=== PATIENT | male | born 1975 | race Caucasian/White ===

== ENCOUNTER 2018-12-20 08:30 | Emergency (ER) | payer OTHER ==
[2018-12-20] MEDS ORDERED: diphenhydrAMINE HCL 50 MG CAPSULE PO ONE (08:34)
[2018-12-20] MEDS ORDERED: FAMOTIDINE 20 MG TABLET PO ONE (08:34)
[2018-12-20] MEDS ORDERED: diphenhydrAMINE HCL 25 MG CAPSULE (FP) PO ONE (08:40)
[2018-12-20] MEDS ORDERED: FAMOTIDINE 20 MG TABLET ONE (08:40)
[2018-12-20 08:42] VITALS: BMI 32.1
[2018-12-20] MEDS ORDERED: predniSONE 20 MG TABLET (UD) PO ONE (08:51)
--- NOTE | 2018-12-20 08:51 | PDOC ---
History of Present Illness - General Chief Complaint: Allergic Reaction Stated Complaint: BEE STING History Source: Patient Exam Limitations: No Limitations - History of Present Illness Initial Comments: 12/20/18 08:46 43 yo M h/o prior allergy to bee sting here with c/o bee sting 10 minutes ago. pt states stung on his left forearm while at work. he took his epi pen, but was concerned because it one year ago. did not take any thing else. no lip or tongue swelling. c/o small area of rash around the bite . no wheezing. no sob. no n/v. happned prior and pt developed facial swelling . Past History - Past Medical History Allergies/Adverse Reactions: Allergies Allergy/AdvReac Type Severity Reaction Status Date / Time bee venom protein (honey bee) Allergy Verified 12/20/18 08:31 Home Medications: Ambulatory Orders EPINEPHrine [Epinephrine] 0.3 mg IM 1XPACU PRN #2 auto.injct 12/20/18 Prednisone [Deltasone] 20 mg PO BID #6 tablet MDD 2 12/20/18 COPD: No Other medical history: denies - Immunization History Immunization Up to Date: (2012) - Suicide/Smoking/Psychosocial Hx Smoking Status: Yes Smoking History: Never smoked Have you smoked in the past 12 months: No Number of Cigarettes Smoked Daily: 0 Information on smoking cessation initiated: No Hx Alcohol Use: ("rare") Drug/Substance Use Hx: No Substance Use Type: None Review of Systems - Review of Systems Constitutional: No: Chills, Diaphoresis, Fever HEENTM: No: Eye Pain Respiratory: No: Cough, Orthopnea, Shortness of Breath ABD/GI: No: Abdominal Distended, Nausea, Poor Appetite Musculoskeletal: No: Back Pain, Gout, Joint Pain Integumentary: Yes: Rash. No: Erythema, Flushing, Lesions All Other Systems: Reviewed and Negative *Physical Exam - Vital Signs Last Vital Signs Temp Pulse Resp BP Pulse Ox 98.3 F 103 H 20 147/90 99 12/20/18 08:30 12/20/18 08:30 12/20/18 08:30 12/20/18 08:30 12/20/18 08:30 - Physical Exam Comments: 12/20/18 08:49 awake alert lungs clear bilaterally heart rrr no mrg abd soft nt nd ext wwp. left upper ext with small area of rash about forearm 1 in x 2 in. 2 + radial / ulnar pulses. Medical Decision Making - Medical Decision Making 12/20/18 08:50 43 yo male h/o prior bee sting allergy, here s/p bee sting. already got epi at home. will treat with benadryl, pepcid and steroids. no current sxs of anaphylaxis. will observe for reaction. 12/20/18 10:38 pt with improvement. no wheezing. no lip or tongue swelling. rash has not spread. will dc with refill for epi, steroids x 3 days and benadryl. *DC/Admit/Observation/Transfer Diagnosis at time of Disposition: Bee sting allergy - Discharge Dispostion Disposition: HOME Condition at time of disposition: Improved - Prescriptions Prescriptions: EPINEPHrine [Epinephrine] 0.3 mg IM 1XPACU PRN #2 auto.injct PRN Reason: Allergies Prednisone [Deltasone] 20 mg PO BID #6 tablet MDD 2 - Referrals - Patient Instructions Printed Discharge Instructions: DI for General Allergic Reactions Additional Instructions: you can use prednisone 20 mg twice daily x 3 days starting tomorrow. you can take benadryl 25 mg every 6 hrs as needed for itching and allergy symptoms. you can use epi pen for any repeat serious allergic reactions. - Post Discharge Activity
[2018-12-20] MEDS ORDERED: predniSONE 20 MG TABLET (UD) ONE (08:53)
[2018-12-20 11:13] VITALS: BP 138/65; PULSE 79; TEMP 97.8
== END 2018-12-20 11:13 | disposition home or self-care (01) ==
LOC: FER 08:30
DX: S51.852A Open bite of left forearm, initial encounter (principal); W57.XXXA Bitten or stung by nonvenomous insect and other nonvenomous arthropods, initial encounter; Y93.9 Activity, unspecified; Y99.0 Civilian activity done for income or pay
CPT/HCPCS: 99283-25

== ENCOUNTER 2019-01-24 09:56 | Emergency (ER) | payer OTHER ==
--- NOTE | 2019-01-24 09:59 | PDOC ---
History of Present Illness - General Chief Complaint: Bite Stated Complaint: BEE STING Time Seen by Provider: 01/24/19 09:59 History Source: Patient Exam Limitations: No Limitations - History of Present Illness Initial Comments: 01/24/19 10:09 43 YOM with h/o bee sting allergies presenting with bee stings to his head and forehead [employer]. he self injected his epi pen [employer] at approx 955AM. several bees stung his left side of head and right upper forehead now with faint rash, no stinger left in place, while he was riding a tractor. pt denies airway involvement, sensation of throat closing, respiratory distress , CP, AP, headache, dizziness 01/24/19 11:59 Past History - Past Medical History Allergies/Adverse Reactions: Allergies Allergy/AdvReac Type Severity Reaction Status Date / Time bee venom protein (honey bee) Allergy Verified 01/24/19 09:57 Home Medications: Ambulatory Orders Diphenhydramine [Benadryl -] 50 mg PO QID PRN #30 capsule 01/24/19 EPINEPHrine (EPI-PEN 0.3MG) [Epipen 0.3MG -] 0.3 mg IM ASDIR PRN #2 pens COPD: No - Immunization History Immunization Up to Date: (2012) - Suicide/Smoking/Psychosocial Hx Smoking Status: Yes Smoking History: Never smoked Have you smoked in the past 12 months: No Number of Cigarettes Smoked Daily: 0 Hx Alcohol Use: ("rare") Drug/Substance Use Hx: No Substance Use Type: None Review of Systems - Review of Systems Able to Perform ROS?: Yes Comments:: 01/24/19 10:11 Review of systems Constitutional: no fevers or chills. HEENT: no headache or dizziness. No congestion. No visual/hearing disturbances. no sore throat, no neck pain. CVS: no cp or syncope. Resp: no sob. No cough. no respiratory distress. Gastrointestinal: no abdominal pain, nausea or vomiting. MUSCULOSKELETAL: No joint pain and swelling. No neck or back pain. SKIN: no redness or skin changes, no discharge, no rash. No wounds. +hive/bee sting to forehead/scalp Hematologic: no easy bruising/bleeding. NEUROLOGIC: No headache, dizziness, LOC or altered mental status. No weakness, numbness or tingling. Allergic/Immunologic: +bee sting allergy All other systems reviewed and negative, or as documented in HPI. *Physical Exam - Physical Exam Comments: 01/24/19 10:12 Physical exam: General: Well appearing, awake and alert, NAD. HEENT: NCAT, PERRL, EOMI, clear conjunctiva, anicteric, moist mucus membranes, clear oropharynx, no oral lesions.. right upper forehead and left lateral scalp with small raised area of erythema, site of bee stings; no stinger/FB in place clear phonation, uvula midline Neck: neck supple, FROM Resp: CTAB, normal and even respirations, no respiratory distress CVS: RRR, no murmurs, 2+ peripheral pulses throughout, no peripheral edema Abdomen: soft, NTND, no peritoneal signs. Back: nontender, normal inspection and ROM MSK: no edema, VALENTE x4, ROM intact. No clubbing or cyanosis. normal bulk and tone. Neuro: alert, no focal neuro deficits. Psych: calm and cooperative Skin: warm and well perfused, cap refill <2 sec, normal color, +rash to forehead /scalp as above. 01/24/19 10:13 Medical Decision Making - Medical Decision Making 01/24/19 10:08 Vital Signs Temp Pulse Resp BP Pulse Ox 98.3 F 96 H 18 142/103 H 99 01/24/19 09:57 01/24/19 09:57 01/24/19 09:57 01/24/19 09:57 01/24/19 09:57 hpi as documented VS with HTN, this is likely 2/2 epi pen inj [employer] at 955AM airway intact, clear lungs, mentating, no symptoms except for bee sting sites. ED course: - monitored in the ED x 2 hours post epi, no recurrence of sx. given benadryl, with improvement 01/24/19 11:59 no recurrence on further eval. pt comfortable, NAD and nontoxic appearing repeat VS normalized, no hypotension, normal respirations, no tachy medication use and instructions given. avoid triggers and precipitating allergens. Pt to be discharged in stable condition. Patient made aware of clinical impression, treatment recommendations and disposition plan, return precautions discussed (including but not limited to new or persistent/worsening symptoms, pain, fevers, or signs of infection, chest pain, respiratory distress, inability to tolerate oral intake, dehydration, syncope, or neurologic changes) . Follow up with PMD as recommended, follow up information provided, take medications as instructed for duration of time. continue with supportive care, avoid triggers and precipitants. All questions answered to patient's satisfaction and expressed understanding and comfort with this. At the time of discharge, the patient is alert, clinically improved, tolerating po and verbalizes understanding of instructions, satisfied with the care received and felt comfortable with the plan. Patient does not suffer from an acute life- threatening medical condition at this time and is safe for outpatient follow- up. 01/24/19 12:01 *DC/Admit/Observation/Transfer Diagnosis at time of Disposition: Bee sting allergy - Discharge Dispostion Condition at time of disposition: Stable Decision to Admit order: No - Prescriptions Prescriptions: Diphenhydramine [Benadryl -] 50 mg PO QID PRN #30 capsule PRN Reason: hives EPINEPHrine (EPI-PEN 0.3MG) [Epipen 0.3MG -] 0.3 mg IM ASDIR PRN #2 pens PRN Reason: anaphylaxis - Referrals Referrals: [facility] [place] [facility] [place] [Provider Group] [facility] [Provider Group] Julito Garzon MD [Staff Physician] - - Patient Instructions Printed Discharge Instructions: How to Care for an Insect Bite or Sting, DI for Insect Bites and Stings Additional Instructions: 1) Please follow-up with your primary care doctor in the next 1-2 days. Please call tomorrow for for any urgent issues. If you have any worsening of symptoms or any other concerns please return to the ED immediately. Return if worsening symptoms including fevers, headache, vomiting, visual or hearing disturbances, throat closing, airway compromise, abdominal pain, chest pain, shortness of breath, syncope, dehydration, inability to take things by mouth/vomiting, altered mental status, or worsening concerning symptoms. in the case you do develop anaphylaxis to insect/bee sting, use your epi pen, inject in the lateral thigh, blue to the bibi. you may feel jittery/tremulous and flushed, use this only if you have developed airway compromise, severe hives and allergic reaction you can take benadryl 50mg every 6-8 hours as needed for hives/allergic symptoms. this can cause drowsiness, do not drive or operate machinery under this influence. Stay well hydrated and rest adequately. Make an appointment. If you cannot follow-up with your primary care doctor please return to the ED - referrals will be given - Post Discharge Activity
[2019-01-24] MEDS ORDERED: diphenhydrAMINE HCL 50 MG CAPSULE PO ONE (10:04)
[2019-01-24 10:05] VITALS: TEMP 98.3; BMI 32.1
[2019-01-24 11:15] VITALS: BP 136/98; PULSE 72
== END 2019-01-24 12:13 | disposition home or self-care (01) ==
LOC: FER 09:56
DX: T63.441A Toxic effect of venom of bees, accidental (unintentional), initial encounter (principal); Y93.9 Activity, unspecified; Y92.9 Unspecified place or not applicable
CPT/HCPCS: 99281-25